=== PATIENT | male | born 1935 | race Caucasian/White ===

== ENCOUNTER 2018-03-23 10:01 | Day surgery (SDC) | payer MEDICARE, OTHER ==
[~2018-03-23 10:01] MED LIST: AMIO200T4 PO; AMLO5TAB4 PO; CILO50TA PO; DABI150C PO; ISOS60TA4 PO; NIAC500T2 PO; TERA10CA4 PO
[2018-03-23] MEDS ORDERED: PROPOFOL 200 MG/20 ML BOTTLE IV ONE (10:02)
[2018-03-23] MEDS ORDERED: LIDOCAINE HCL 2% 20 ML VIAL MC ONE (10:02)
[2018-03-23] MEDS ORDERED: IV LACTATED RINGERS SOLUTION 1,000 ML BAG MC ONE (10:02)
[2018-03-23 11:06] LABS: *BILIRUBIN,URIN NEGATIVE (NEGATIVE); *BLOOD, URINE NEGATIVE (NEGATIVE); *CLARITY,URINE CLEAR (CLEAR); *COLOR,URINE YELLOW (YELLOW); *KETONES,URINE NEGATIVE (NEGATIVE); *PROTEIN,URINE TRACE (NEGATIVE); *UROBILINOGEN,URINE 0.2 E.U./dl (NORMAL); LEUKOCYTE ESTERASE ,URINE NEGATIVE (NEGATIVE); NITRITE, URINE NEGATIVE (NEGATIVE); PH,URINE 8.5 (5.0-8.0); UGLUCOSE NEGATIVE (NEGATIVE)
[2018-03-23 11:48] LABS: BACTERIA,URINE NONE SEEN /HPF (NONE SEEN); RBC,URINE NONE SEEN /HPF (0-3); SQUAMOUS EPITHELIAL CELL,UR NONE SEEN /HPF (NONE SEEN); WBC,URINE NONE SEEN /HPF (0-3)
== END 2018-03-23 13:10 | disposition home or self-care (01) ==
LOC: DS 10:01
PROVIDERS: ATTEND Surgery
DX: K64.4 Residual hemorrhoidal skin tags (principal); K64.8 Other hemorrhoids; K44.9 Diaphragmatic hernia without obstruction or gangrene; D64.9 Anemia, unspecified; Z86.010 Personal history of colon polyps; I10 Essential (primary) hypertension; E11.9 Type 2 diabetes mellitus without complications; M19.90 Unspecified osteoarthritis, unspecified site; N40.0 Benign prostatic hyperplasia without lower urinary tract symptoms; I49.9 Cardiac arrhythmia, unspecified; Z98.890 Other specified postprocedural states; Z95.0 Presence of cardiac pacemaker; Z79.899 Other long term (current) drug therapy; J44.9 Chronic obstructive pulmonary disease, unspecified; E66.9 Obesity, unspecified
CPT/HCPCS: A4217; A4663; J3490; J7120